=== PATIENT | male | born 1950 | race Caucasian/White ===

== ENCOUNTER 2016-06-25 08:58 | Emergency (ER) | payer MEDICARE, OTHER ==
[2016-06-25 10:13] LABS: HEMOGLOBIN 16.6 gm/dl (14.0-17.5); RED BLOOD COUNT 5.4 M/UL (4.20-5.50); WHITE BLOOD COUNT 12.4 K/UL (4.5-11.0)
[2016-06-25 10:27] LABS: BUN/CREATININE RATIO 17 (0-10)
== END 2016-06-26 | disposition left against medical advice (07) ==
LOC: ER1 08:58 → ZEROF 21:32 → ER1 21:32 → ZEROF 21:32
PROVIDERS: Emergency Medicine
DX: J10.1 Influenza due to other identified influenza virus with other respiratory manifestations (principal); E87.2 Acidosis; E86.0 Dehydration; E11.9 Type 2 diabetes mellitus without complications; I10 Essential (primary) hypertension; Z85.820 Personal history of malignant melanoma of skin; Z87.891 Personal history of nicotine dependence; Z79.2 Long term (current) use of antibiotics; Z79.4 Long term (current) use of insulin; Z79.82 Long term (current) use of aspirin; Z79.899 Other long term (current) drug therapy
CPT/HCPCS: 36415; 36600; 71020; 80053; 82009; 82550; 82553; 82803; 82962; 83605; 83874; 83880; 84484; 85025; 87040; 93005; 94640; 94664; 96360; 99284; G0378; J1815; J7030

== ENCOUNTER 2016-09-13 12:28 | Emergency (ER) | payer MEDICARE, OTHER | END 2016-09-13 15:00 | disposition home or self-care (01) | LOC: ER1 12:28 | DX: M51.37 Other intervertebral disc degeneration, lumbosacral region (principal); E11.9 Type 2 diabetes mellitus without complications; I10 Essential (primary) hypertension; E78.5 Hyperlipidemia, unspecified; F17.210 Nicotine dependence, cigarettes, uncomplicated; Z79.82 Long term (current) use of aspirin; Z79.84 Long term (current) use of oral hypoglycemic drugs; Z79.899 Other long term (current) drug therapy | CPT/HCPCS: 72131; 72170; 99284 ==